=== PATIENT | female | born 1995 | race Caucasian/White ===

== ENCOUNTER 2020-09-05 21:28 | Emergency (ER) | payer SELFPAY ==
[2020-09-05 21:28] VITALS: BP 137/84; PULSE 92; RESP 18; TEMP 37.8; O2SAT 96; BMI 31.6
[2020-09-05 21:29] VITALS: BMI 31.6
--- NOTE | 2020-09-05 21:31 | XR_ITS ---
PROCEDURE INFORMATION: Exam: XR Chest Exam date and time: 09/05/2020 9:31 PM Age: 25 years old Clinical indication: Shortness of breath; Patient HX: Covid PT short of breath weakness TECHNIQUE: Imaging protocol: XR of the chest. Views: 1 view. COMPARISON: No relevant prior studies available. FINDINGS: Lungs: Faint bibasilar opacities. Pleural spaces: Unremarkable. No pleural effusion. No pneumothorax. Heart/Mediastinum: Unremarkable. No cardiomegaly. Bones/joints: Unremarkable. IMPRESSION: Faint bibasilar opacities could represent infection.
[2020-09-05 21:52] LABS: Microscopic, Urine URINE MICROSCOPIC (MICROSCOPIC)
--- NOTE | 2020-09-05 21:52 | ECG_ITS ---
APPROVED REPORT Exam: Resting ECG HR:110 bpm ECG Measurements Heart Rate 110 AXES MO 130 P 61 QRSd 86 QRS 75 QT 322 T -18 QTc 435 Conclusion Sinus tachycardia Ow normal ECG Electronically signed by : Benito Morales, 09/06/2020 21:02:34
[2020-09-05 21:56] LABS: Appearance,Urine CLOUDY (Clear); Basophils % 0.4 % (0.1-2.0); Blood, Urine Negative (Negative); Color,Urine DK YELLOW (Yellow); Eosinophils % 0.3 % (0.1-12.0); Glucose,Urine (UA) Negative (Negative); Hematocrit 36.8 % (37.0-47.0); Hemoglobin 11.8 g/dL (12.2-16.2); Ketones,Urine 1+ (Negative); Leukocyte Esterase,Urine Negative (Negative); Lymphocytes # 0.9 K/mm3 (0.7-4.5); Lymphocytes % 24.2 % (10-50); Mean Corpuscular Hemoglobin 23.4 pg (27.0-31.2); Mean Corpuscular Volume 73.1 fl (81-99); Mean Platelet Volume 9.2 fl (7.4-10.4); Monocytes # 0.2 K/mm3 (0.1-1.0); Monocytes % 4.3 % (1.7-9.3); Neutrophils # 2.5 K/mm3 (1.8-7.8); Neutrophils % 70.8 % (37.0-80.0); Nitrate,Urine Negative (Negative); PH,Urine 5.5 (5.0-8.5); Platelet Count 143 K/mm3 (142-424); Protein,Urine 2+ (Negative); Red Blood Count 5.03 M/mm3 (4.20-5.40); Red Cell Distribution Width 14.5 % (11.5-17.5); Specific Gravity, Urine 1.025 (1.005-1.030); White Blood Count 3.5 K/mm3 (4.8-10.8)
[2020-09-05 22:01] LABS: Chloride 100 mmol/L (98-107); Potassium 3.2 mmoL/L (3.5-5.1); Sodium 138 mmol/L (136-145)
[2020-09-05 22:03] LABS: Blood Urea Nitrogen 8 mg/dl (7-17); Creatinine Clearance Estimated 160 mL/min (50-200); Estimated Glomerular Filt Rate 87 ml/min (>60); GFR (African American) 106 ML/MIN (>60)
[2020-09-05 22:04] LABS: Alanine Aminotransferase 30 U/L (12-78); Albumin Level 4.7 g/dl (3.5-5.0); Albumin/Globulin Ratio 1.3 (1.1-1.8); Alkaline Phosphatase 101 U/L (38-126); Anion Gap 15.2 mEq/L (5-15); Aspartate Amino Transferase 46 U/L (14-36); Bilirubin,Total 0.3 mg/dl (0.2-1.3); Calcium 8.7 mg/dl (8.4-10.2); Carbon Dioxide 26 mmol/L (22.0-30.0); Globulin 3.6 g/dL (1.3-3.2); Glucose 107 mg/dl (74-100); Total Protein,Serum 8.3 g/dl (6.3-8.2)
[2020-09-05 22:08] LABS: Bilirubin,Urine 2+ (Negative)
[2020-09-05 22:15] LABS: Bacteria,Urine Trace /lpf; Squamous Epithelial Cell,Urine 20-50 #/hpf (0-5)
[2020-09-05 22:17] LABS: Urine Pregnancy, HCG Qual. Negative (Negative)
--- NOTE | 2020-09-05 23:03 | [facility].EDGENADL ---
ED Disposition Clinical Impression: COVID-19 Disposition: Home, Self-Care Condition on Discharge: Good Additional Instructions: Take Augmentin and azithromycin as prescribed. Follow-up with your primary care doctor. Return to the emergency department for any new or worsening symptoms. Prescriptions: Amoxicillin/Potassium Clav [Augmentin 875-125 Tablet] 1 tab PO Q12H 7 Days #14 tab Transmission Status: Pending to [facility] #[id number] Azithromycin [Z-Robles 250mg Tab] 250 mg PO DIRECTED #6 tab Transmission Status: Pending to [facility] #[id number] Ondansetron [Zofran 4mg ODT] 4 mg PO TIDP PRN #14 tab PRN Reason: Nausea And Vomiting Transmission Status: Pending to [facility] #[id number] Referrals: Provider,Referral, [Primary Care Provider] - - Critical Care Critical Care Time: No Attestation: On 09/05/20, the high probability of a clinically significant, sudden or life threatening deterioration of the following system(s) required my full and direct attention, intervention and personal management. The time I documented below is in addition to time spent performing reported procedures but includes the following listed in this critical care notation. Medical Decision Making - [place] Inquiry Pt receiving controlled substance: No Vital Signs: 09/05/20 21:28 Temperature 100.0 F H Temperature Source Oral Pulse Rate [Right] 92 H Respiratory Rate 18 Blood Pressure [Right Arm] 137/84 Blood Pressure Mean [Right Arm] 101 02 Sat by Pulse Oximetry 96 - Lab Data Lab Results 09/05/20 21:47: Urine Color Dk yellow, Urine Appearance Cloudy, Urine pH 5.5, Ur Specific [place] 1.025, Urine Protein 2+, Urine Glucose (UA) Negative, Urine Ketones 1+, Urine Blood Negative, Urine Nitrate Negative, Urine Bilirubin 2+ A, Urine Urobilinogen 1.0, Ur Leukocyte Esterase Negative, Urine RBC 5-10, Urine WBC 5-10, Ur Squamous Epith Cells 20-50, Urine Bacteria Trace 09/05/20 21:47: WBC 3.5 L, RBC 5.03, Hgb 11.8 L, Hct 36.8 L, MCV 73.1 L, MCH 23.4 L, MCHC 32.0, RDW 14.5, Plt Count 143, MPV 9.2, Neut % (Auto) 70.8, Lymph % (Auto) 24.2, Heard % (Auto) 4.3, Eos % (Auto) 0.3, Baso % (Auto) 0.4, Neut # (Auto) 2.5, Lymph # (Auto) 0.9, Heard # (Auto) 0.2, Eos # (Auto) 0.0, Baso # (Auto) 0.0 09/05/20 21:47: Sodium 138, Potassium 3.2 L, Chloride 100, Carbon Dioxide 26, Anion Gap 15.2 H, BUN 8, Creatinine 0.80, Estimated Creat Clear 160, Estimated GFR 87, Est GFR ( Amer) 106, Glucose 107 H, Calcium 8.7, Total Bilirubin 0.3, AST 46 H, ALT 30, Alkaline Phosphatase 101, Total Protein 8.3 H, Albumin 4.7, Globulin 3.6 H, Albumin/Globulin Ratio 1.3 09/05/20 21:47: Urine HCG, Qual Negative Result diagrams: 09/05/20 21:47 09/05/20 21:47 Orders (Tests/Meds): ED MEDICATIONS Generic Name Dose Route Start Last Admin Trade Name Freq PRN Reason Stop Dose Admin Lactated Ringer's 1,000 mls @ 999 mls/hr 09/05/20 21:30 09/05/20 22:05 Lactated Ringer's 1000 Ml Bag IV 09/05/20 22:30 999 mls/hr .[id number] MAGGY Administration Discontinued Medications Generic Name Dose Route Start Last Admin Trade Name Freq PRN Reason Stop Dose Admin Acetaminophen 1,000 mg 09/05/20 21:30 09/05/20 22:04 Acetaminophen 500mg Tab PO 09/05/20 21:31 1,000 mg ONCE ONE Administration Ketorolac Tromethamine 30 mg 09/05/20 21:30 09/05/20 22:04 Ketorolac 30mg/Ml Vial IV 09/05/20 21:31 30 mg ONCE ONE Administration Ondansetron HCl 4 mg 09/05/20 21:30 09/05/20 22:04 Ondansetron 4mg/2ml Vial IV 09/05/20 21:31 4 mg ONCE ONE Administration Medical Decision Narrative: The patient is a 25-year-old female who is known Covid positive and presents to the emergency department with vomiting, diarrhea, decreased p.o. intake, cough and shortness of breath. Differential diagnosis includes bacterial pneumonia, COVID-19, viral pneumonia dehydration. Given this plan to obtain chest x-ray, CBC, CMP EKG.. The patient
[2020-09-05 23:47] VITALS: BP 111/71; PULSE 89; RESP 17; TEMP 36.9; O2SAT 98
--- NOTE | 2020-09-05 23:54 | PC.NURSE ---
pt called boyfriend to pick her up.
== END 2020-09-06 00:03 | disposition home or self-care (01) ==
PROVIDERS: Emergency Provider Emergency Medicine
DX: U07.1 COVID-19 (principal)
CPT/HCPCS: 71045; 80053; 81001; 81025; 85025; 93005; 96365; 96375; 99283; J2405